=== PATIENT | female | born 1965 | race Caucasian/White ===

== ENCOUNTER 2018-02-24 11:49 | Emergency (ER) | payer OTHER ==
[~2018-02-24] VITALS: Ht 157.5 cm; Wt 50.4 kg
[2018-02-24 11:55] VITALS: BP 133/85
[2018-02-24] MEDS ORDERED: PROPARACAINE OPHTH 0.5%, 15ML ONE (12:08)
[2018-02-24] MEDS ORDERED: PROPARACAINE OPHTH 0.5%, 15ML EACHEYE ONE (12:30)
[2018-02-24] MEDS ORDERED: FLUORESCEIN OPHTHALMIC 1 MG STRIP EACHEYE ONE (12:30)
[2018-02-24] MEDS ORDERED: BACITRACIN ZINC OINT 500U/GM, 0.9 GM ONE (12:37)
== END 2018-02-24 12:59 | disposition home or self-care (01) ==
LOC: ED 12:57
DX: T20.14XA Burn of first degree of nose (septum), initial encounter (principal); T20.16XA Burn of first degree of forehead and cheek, initial encounter; T26.02XA Burn of left eyelid and periocular area, initial encounter; T31.0 Burns involving less than 10% of body surface; X10.0XXA Contact with hot drinks, initial encounter; Y93.89 Activity, other specified; Y92.89 Other specified places as the place of occurrence of the external cause; Y99.8 Other external cause status
CPT/HCPCS: 99283